=== PATIENT | male | born 1980 | race Caucasian/White ===

== ENCOUNTER 2017-04-30 17:23 | Observation (INO) | payer OTHER ==
[2017-04-30 17:33] VITALS: BMI 25.6
[2017-04-30 17:53] VITALS: RESP 18
[2017-04-30 18:17] LABS: BASO # 0.01 K/mm3 (0.0-2.0); BASO % 0.2 % (0.0-3.0); EOS # 0.2 (0.0-0.7); EOS % 4.1 % (1.5-5.0); GRAN # 1.34 (1.4-6.5); GRAN % 30.7 % (50.0-68.0); HEMOGLOBIN 14.7 g/dL (14.0-18.0); LYMPH # 2.6 (1.2-3.4); LYMPH % 58.6 % (22.0-35.0); MEAN CELL VOLUME 86.6 fl (80.0-105.0); MEAN CORPUSCULAR HEMOGLOBIN 29.5 pg (25.0-35.0); MEAN PLATELET VOLUME 9.3 fl (7.0-11.0); MONO # 0.3 (0.1-0.6); MONO % 6.4 % (1.0-6.0); RBC 4.99 10^6/uL (3.5-6.1); RED CELL DISTRIBUTION WIDTH 12.8 % (11.5-14.5); WHITE BLOOD COUNT 4.4 10^3/ul (4.5-11.0)
[2017-04-30 18:21] LABS: ALB/GLOB RATIO 1.6 (1.1-1.8); ALBUMIN 4.2 g/dL (3.0-4.8); CALCIUM 9.5 mg/dL (8.4-10.5); GFR AFRICAN-AMERICAN > 60; GFR NON-AFRICAN AMERICAN > 60; LIPASE 81 U/L (23-300)
[2017-04-30 18:22] LABS: INR 1.03 (0.93-1.08); PARTIAL THROMBOPLASTIN TIME 28.3 Seconds (25.1-36.5); PROTHROMBIN TIME 11.8 SECONDS (9.4-12.5)
[2017-04-30 18:23] LABS: ALT/SGPT 44 U/L (7-56); AST/SGOT 28 U/L (17-59); BLOOD UREA NITROGEN 16 mg/dL (7-21)
[2017-04-30 18:33] LABS: B-TYPE NATRIURETIC PEPTIDE 21.6 pg/mL (0-450); TROPONIN I < 0.01 ng/mL
--- NOTE | 2017-04-30 18:52 | RAD ---
HISTORY: chest pain COMPARISON: None available. TECHNIQUE: Chest, one view. FINDINGS: LUNGS: Right hilar prominence. No focal consolidation. Please note that chest x-ray has limited sensitivity for the detection of pulmonary masses. PLEURA: No significant pleural effusion identified. No definite pneumothorax . CARDIOVASCULAR: Heart size appears within normal limits. OSSEOUS STRUCTURES: No acute osseous abnormality identified. VISUALIZED UPPER ABDOMEN: Elevation of the right hemidiaphragm. OTHER FINDINGS: None. IMPRESSION: Right hilar prominence.
--- NOTE | 2017-04-30 19:00 | ED PDOC ---
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 Patient reportedly was playing with his kids, and while he was laying down, developed a sudden onset of "squeezing in his chest" that radiated to his neck and was associated with shortness of breath and diaphoresis. Pain does not radiate to arms or back. No leg pain or numbness. No back pain. Denies facial or tongue swelling. States squeezing sensation persistent. He denies any prior episodes of this. Denies prior history of any cardiac disease. States there is history of "atherosclerosis" in his mother. PMD Dr. Delia Condon 04/30/17 18:57 Time/Duration: Prior to Arrival Symptom Onset: Sudden Past Medical History - Cardiac Hx Cardiac Disorders: No - Pulmonary Hx Respiratory Disorders: No - Neurological Hx Neurological Disorder: No - HEENT Hx HEENT Disorder: No - Renal Hx Renal Disorder: No - Endocrine/Metabolic Hx Endocrine Disorders: No - Hematological/Oncological Hx Blood Disorders: No - Integumentary Hx Dermatological Disorder: No - Musculoskeletal/Rheumatological Hx Musculoskeletal Disorders: No - Gastrointestinal Hx Gastrointestinal Disorders: Yes Hx Gastroesophageal Reflux: Yes - Psychiatric Hx Substance Use: No - Surgical History Hx Cholecystectomy: Yes Hx Musculoskeletal Surgery: Yes (right knee and left ankle) - Anesthesia Hx Anesthesia: Yes Hx Anesthesia Reactions: No Hx Malignant Hyperthermia: No Family/Social History Family/Social History: Unknown Family HX Smoking Status: Never Smoked Hx Alcohol Use: No Hx Substance Use: No Allergies/Home Meds Allergies/Adverse Reactions: Allergies No Known Allergies Allergy (Verified 04/30/17 17:32) Home Medications: Home Meds Medication Instructions Recorded Confirmed No Known Home Med 04/30/17 04/30/17 Review of Systems - Review of Systems Constitutional: Fatigue. absent: Fevers Eyes: absent: Vision Changes ENT: absent: Hearing Changes Respiratory: SOB. absent: Cough Cardiovascular: Chest Pain. absent: Palpitations, Edema, Calf Pain, VICENTE, Orthopnea Gastrointestinal: absent: Abdominal Pain, Nausea, Vomiting, Hematochezia, Hematemesis Genitourinary Male: absent: Dysuria, Frequency Musculoskeletal: absent: Back Pain, Neck Pain Skin: absent: Rash Neurological: absent: Headache, Dizziness, Focal Weakness Endocrine: absent: Polyuria Hemo/Lymphatic: absent: Easy Bleeding Psychiatric: absent: Depression Physical Exam Vital Signs Reviewed: Yes Vital Signs Temp Pulse Resp BP Pulse Ox 04/30/17 21:24 72 18 128/74 99 04/30/17 19:24 70 18 127/73 100 04/30/17 17:32 98.6 F 75 18 125/76 98 Temperature: Afebrile Appearance: Positive for: Ill-Appearing, Uncomfortable Pain Distress: Moderate Mental Status: Positive for: Alert and Oriented X 3 Finger Stick Blood Glucose: 116 - Systems Exam Head: Present: Atraumatic Pupils: Present: PERRL Extroacular Muscles: Present: EOMI Mouth: Present: Moist Mucous Membranes Pharnyx: No: ERYTHEMA Nose (Internal): Present: Normal Inspection Neck: Present: Normal Range of Motion. No: Meningeal Signs Respiratory/Chest: Present: Clear to Auscultation. No: Respiratory Distress, Tender to Palpation Cardiovascular: Present: Regular Rate and Rhythm, Murmurs Abdomen: Present: Normal Bowel Sounds. No: Tenderness, Distention, Peritoneal Signs Rectal: No: Gross Blood Back: No: CVA Tenderness Upper Extremity: No: Cyanosis Lower Extremity: Present: NORMAL PULSES. No: Edema, CALF TENDERNESS Neurological: Present: Motor Func Grossly Intact, Normal Sensory Function Skin: Present: Diaphoretic Psychiatric: Present: Alert, Normal Insight, Normal Concentration Medical Decision Making ED Course and Treatment: 04/30/17 19:02 Patient presents with friend who translates. On exam, he is pale, diaphoretic with "squeezing" chest pain, nonradiating. CXR reveals no pneumothorax and unremarkable mediastinum. BP and pulse equal in both upper extremities. No association with meals. No pleuritic pain. No calf pain. No hypoxia. No recent travel or prolonged immobilization or recent surgeries. There is vague family hx of CAD. Patient administered ASA, Pepcid with improvement of pain, but persistent. Initial EKG unremarkable. - Lab Interpretations Lab Results: 04/30/17 18:00 04/30/17 18:00 Lab Results 04/30/17 19:35: Urine Color Yellow, Urine Appearance Clear, Urine pH 6.5, Ur Specific [place] 1.025, Urine Protein Negative, Urine Glucose (UA) Negative, Urine Ketones Trace H, Urine Blood Negative, Urine Nitrate Negative, Urine Bilirubin Negative, Urine Urobilinogen 0.2, Ur Leukocyte Esterase Negative 04/30/17 18:01: POC Glucose (mg/dL) 116 H 04/30/17 18:00: Sodium 143, Potassium 4.0, Chloride 104, Carbon Dioxide 27, Anion Gap 16, BUN 16, Creatinine 1.0, Est GFR ( Amer) > 60, Est GFR (Non- Af Amer) > 60, Random Glucose 114 H, Calcium 9.5, Total Bilirubin 0.4, AST 28, ALT 44, Alkaline Phosphatase 42, Lactate Dehydrogenase 432, Total Creatine Kinase 86, Troponin I < 0.01, NT-Pro-B Natriuret Pep 21.6, Total Protein 6.9, Albumin 4.2, Globulin 2.7, Albumin/Globulin Ratio 1.6, Lipase 81 04/30/17 18:00: PT 11.8, INR 1.03, APTT 28.3 04/30/17 18:00: WBC 4.4 L, RBC 4.99, Hgb 14.7, Hct 43.2, MCV 86.6, MCH 29.5, MCHC 34.0, RDW 12.8, Plt Count 266, MPV 9.3, Gran % 30.7 L, Lymph % (Auto) 58.6 H, [place] % (Auto) 6.4 H, Eos % (Auto) 4.1, Baso % (Auto) 0.2, Gran # 1.34 L, Lymph # (Auto) 2.6, [place] # (Auto) 0.3, Eos # (Auto) 0.2, Baso # (Auto) 0.01 - RAD Interpretation Radiology Orders: 04/30/17 17:52 CHEST PORTABLE [RAD] Stat - EKG Interpretation EKG Interpretation (Text): 04/30/17 19:04 EKG at 17:30 normal sinus rhythm with sinus arrhythmia rate of 66, no acute st elevations Interpreted by ED Physician: Yes Type: 12 lead EKG - Medication Orders Current Medication Orders: Famotidine (Pepcid) 20 mg IVP DAILY [facility] Heparin Sodium (Porcine) (Heparin) 5,000 units SC Q12 JESSIE PRN Reason: Protocol Discontinued Medications Aspirin (Aspirin Chewable) 81 mg PO STAT STA Stop: 04/30/17 17:54 Last Admin: 04/30/17 18:11 Dose: 81 mg Famotidine (Pepcid) 20 mg IVP STAT STA Stop: 04/30/17 17:54 Last Admin: 04/30/17 18:11 Dose: 20 mg IVP Administration Document 04/30/17 18:11 SUSHMA (Rec: 04/30/17 18:11 SUSHMA [id number]) Charges for Administration # of IVP Administrations 1 Disposition/Present on Arrival - Present on Arrival Any Indicators Present on Arrival: No History of DVT/PE: No History of Uncontrolled Diabetes: No Urinary Catheter: No History of Decub. Ulcer: No History Surgical Site Infection Following: None - Disposition Have Diagnosis and Disposition been Completed?: Yes Diagnosis: Chest pain Disposition: HOSPITALIZED Disposition Time: 19:04 Patient Plan: Admission, Observation, Telemetry Patient Problems: Current Active Problems Problem Status Onset Chest pain Acute Condition: FAIR
[2017-04-30 20:10] LABS: PH,URINE 6.5 (4.7-8.0); URINE BILIRUBIN NEGATIVE (NEGATIVE); URINE BLOOD NEGATIVE (NEGATIVE); URINE GLUCOSE (UA) NEGATIVE (NEGATIVE); URINE LEUKOCYTE ESTERASE NEGATIVE Leu/uL (NEGATIVE); URINE NITRATE NEGATIVE (NEGATIVE); URINE PROTEIN NEGATIVE mg/dL (<30 mg/dL); URINE UROBILINOGEN 0.2 E.U./dL (<1 E.U./dL)
[2017-04-30 20:13] LABS: URINE APPEARANCE CLEAR (CLEAR); URINE COLOR YELLOW (YELLOW)
--- NOTE | 2017-04-30 20:39 | CP.PCM.HP ---
<Vinicio Schroeder - Last Filed: 04/30/17 21:58> History of Present Illness - History of Present Illness History of Present Illness: 36 year old male with no significant past medical history presents with chest pain and pressure. Patient states around 4 pm today he was playing with his kids when he experienced a burning sensation located mid sternally which radiated up into his throat. In addition, he stated he felt pressure all over his chest as if someone was sitting on him. The pain lasted for about 3 minutes and patient felt short of breath. He denied any radiation to the arms or to the jaw or face. He denies any pain on inhalation, but states the pain is slightly reproducible on palpation. He stated the pain was a 10/10 but has improved since being in the hospital. Patient also had once episode of vomiting. Patient denies any nausea currently, fever, chills, sore throat, recent sick contacts, recent travel, diarrhea or abdominal pain. PMH: denies PSH: right knee surgey, left ankle surgery, gall bladder removal Allergies: denies Medications: Vitamin D weekly Social: denies alcohol, tobacco, or illicit drug use Family Hx: states mother had high cholesterol but denies any history of [place] Present on Admission - Present on Admission Any Indicators Present on Admission: No Review of Systems - Constitutional Constitutional: absent: Anorexia, Chills, Fever, Weight Gain, Weakness - EENT Eyes: absent: Change in Vision Nose/Mouth/Throat: absent: Nasal Congestion, Nasal Discharge - Cardiovascular Cardiovascular: Chest Pain, Dyspnea. absent: Irregular Heart Rhythm, Pain Radiating to Arm/Neck/Jaw, Lightheadedness, Radiating Pain, Rapid Heart Rate - Respiratory Respiratory: Dyspnea. absent: Cough, Wheezing - Gastrointestinal Gastrointestinal: Vomiting. absent: Diarrhea, Nausea - Genitourinary Genitourinary: absent: Change in Urinary Stream, Difficulty Urinating - Musculoskeletal Musculoskeletal: absent: Abnormal Gait, Arthralgias - Integumentary Integumentary: absent: Sores, Swelling - Neurological Neurological: absent: Dizziness, Headaches, Paresthesias, Tingling, Weakness Past Patient History - Past Social History Smoking Status: Never Smoked - CARDIAC Hx Cardiac Disorders: No - PULMONARY Hx Respiratory Disorders: No - NEUROLOGICAL Hx Neurological Disorder: No - HEENT Hx HEENT Problems: No - RENAL Hx Chronic Kidney Disease: No - ENDOCRINE/METABOLIC Hx Endocrine Disorders: No - HEMATOLOGICAL/ONCOLOGICAL Hx Blood Disorders: No - INTEGUMENTARY Hx Dermatological Problems: No - MUSCULOSKELETAL/RHEUMATOLOGICAL Hx Musculoskeletal Disorders: No - GASTROINTESTINAL Hx Gastrointestinal Disorders: Yes Hx Gastroesophageal Reflux: Yes - PSYCHIATRIC Hx Substance Use: No - SURGICAL HISTORY Hx Cholecystectomy: Yes Hx Musculoskeletal Surgery: Yes (right knee and left ankle) - ANESTHESIA Hx Anesthesia: Yes Hx Anesthesia Reactions: No Hx Malignant Hyperthermia: No Meds Allergies/Adverse Reactions: Allergies Allergy/AdvReac Type Severity Reaction Status Date / Time No Known Allergies Allergy Verified 04/30/17 17:32 Physical Exam - Constitutional Appears: Non-toxic, No Acute Distress - Head Exam Head Exam: ATRAUMATIC, NORMAL INSPECTION, NORMOCEPHALIC - Eye Exam Eye Exam: EOMI, Normal appearance - ENT Exam ENT Exam: Mucous Membranes Moist - Neck Exam Neck exam: Negative for: Lymphadenopathy, Tenderness - Respiratory Exam Respiratory Exam: Clear to Auscultation Bilateral, NORMAL BREATHING PATTERN - Cardiovascular Exam Cardiovascular Exam: REGULAR RHYTHM, +S1, +S2 Additional comments: pain on palpation midsternally - GI/Abdominal Exam GI & Abdominal Exam: Soft. absent: Distended, Tenderness - Extremities Exam Extremities exam: Positive for: pedal pulses present. Negative for: pedal edema , tenderness - Neurological Exam Neurological exam: Alert, Oriented x3 - Skin Skin Exam: Normal Color, Warm Results - Vital Signs Recent Vital Signs: Last Vital Signs Temp 98.6 F 04/30/17 17:32 Pulse 75 04/30/17 17:32 Resp 18 04/30/17 17:32 BP 125/76 04/30/17 17:32 Pulse Ox 98 04/30/17 17:32 - Labs Result Diagrams: 04/30/17 18:00 04/30/17 18:00 Labs: Laboratory Results - last 24 hr 04/30/17 04/30/17 04/30/17 18:00 18:00 18:00 WBC 4.4 L RBC 4.99 Hgb 14.7 Hct 43.2 MCV 86.6 MCH 29.5 MCHC 34.0 RDW 12.8 Plt Count 266 MPV 9.3 Gran % 30.7 L Lymph % (Auto) 58.6 H [place] % (Auto) 6.4 H Eos % (Auto) 4.1 Baso % (Auto) 0.2 Gran # 1.34 L Lymph # (Auto) 2.6 [place] # (Auto) 0.3 Eos # (Auto) 0.2 Baso # (Auto) 0.01 PT 11.8 INR 1.03 APTT 28.3 Sodium 143 Potassium 4.0 Chloride 104 Carbon Dioxide 27 Anion Gap 16 BUN 16 Creatinine 1.0 Est GFR ( Amer) > 60 Est GFR (Non-Af Amer) > 60 POC Glucose (mg/dL) Random Glucose 114 H Calcium 9.5 Total Bilirubin 0.4 AST 28 ALT 44 Alkaline Phosphatase 42 Lactate Dehydrogenase 432 Total Creatine Kinase 86 Troponin I < 0.01 NT-Pro-B Natriuret Pep 21.6 Total Protein 6.9 Albumin 4.2 Globulin 2.7 Albumin/Globulin Ratio 1.6 Lipase 81 Urine Color Urine Appearance Urine pH Ur Specific [place] Urine Protein Urine Glucose (UA) Urine Ketones Urine Blood Urine Nitrate Urine Bilirubin Urine Urobilinogen Ur Leukocyte Esterase 04/30/17 04/30/17 18:01 19:35 WBC RBC Hgb Hct MCV MCH MCHC RDW Plt Count MPV Gran % Lymph % (Auto) [place] % (Auto) Eos % (Auto) Baso % (Auto) Gran # Lymph # (Auto) [place] # (Auto) Eos # (Auto) Baso # (Auto) PT INR APTT Sodium Potassium Chloride Carbon Dioxide Anion Gap BUN Creatinine Est GFR ( Amer) Est GFR (Non-Af Amer) POC Glucose (mg/dL) 116 H Random Glucose Calcium Total Bilirubin AST ALT Alkaline Phosphatase Lactate Dehydrogenase Total Creatine Kinase Troponin I NT-Pro-B Natriuret Pep Total Protein Albumin Globulin Albumin/Globulin Ratio Lipase Urine Color Yellow Urine Appearance Clear Urine pH 6.5 Ur Specific [place] 1.025 Urine Protein Negative Urine Glucose (UA) Negative Urine Ketones Trace H Urine Blood Negative Urine Nitrate Negative Urine Bilirubin Negative Urine Urobilinogen 0.2 Ur Leukocyte Esterase Negative Assessment & Plan - Assessment and Plan (Free Text) Assessment: 36 year old male with no significant past medical history presents with chest pain and pressure. Plan: 1. Chest Pain -EKG pending official read, NSR 66bpm -Chest xray: right hilar prominence -CT chest pending -BP: 125/76 -initial trop negative, will trend x2 additional -cardiology consulted, Becca, tanner recs -lipid panel pending -A1C pending -TSH, T4 pending -pepcid daily GI/DVT -pepcid -heparin SC <Maida Gross N - Last Filed: 05/01/17 06:36> Results - Vital Signs Recent Vital Signs: Last Vital Signs Temp 97.6 F 05/01/17 01:39 Pulse 60 05/01/17 01:39 Resp 18 05/01/17 01:39 BP 117/74 05/01/17 01:39 Pulse Ox 99 04/30/17 21:24 - Labs Result Diagrams: 04/30/17 18:00 04/30/17 18:00 Labs: Laboratory Results - last 24 hr 05/01/17 01:10 Troponin I < 0.01
[2017-04-30] MEDS ORDERED: Iohexol 350 MG/100 ML VIAL ONE (20:54)
--- NOTE | 2017-05-01 00:17 | CARD ---
APPROVED REPORT EKG Measurement Heart [id number] <Conclusion> Normal sinus rhythm with sinus arrhythmia Normal ECG
--- NOTE | 2017-05-01 02:45 | CT ---
EXAM: CT Chest With Intravenous Contrast EXAM DATE/TIME: 04/30/2017 8:29 PM CLINICAL HISTORY: 36 years old, male; Pain; Chest pain; Additional info: Right hilar prominence TECHNIQUE: Axial computed tomography images of the chest with intravenous contrast. All CT scans at this facility use one or more dose reduction techniques, viz.: automated exposure control; ma/kV adjustment per patient size (including targeted exams where dose is matched to indication; i.e. head); or iterative reconstruction technique. Coronal and sagittal reformatted images were created and reviewed. CONTRAST: 96 mL of OMNI 350 administered intravenously. COMPARISON: Recent chest radiographs of 04/30/2017. FINDINGS: LIMITATIONS: Moderate to marked respiratory motion artifact. LUNGS: Round densities in the lumen of the upper trachea, which do not occlude the airway. Findings most likely represent a mucous plugging or aspirated debris in the trachea. Patchy groundglass densities in the posterior lungs bilaterally, most likely representing dependent atelectasis. No evidence of right hilar mass or lymphadenopathy. No evidence of significant focal consolidation/infiltrate in the lungs. No evidence of diffuse pulmonary vascular congestion. PLEURAL SPACE: No pneumothorax or significant pleural effusions seen. HEART: Heart appears prominent in size for age.Recommend clinical correlation. No evidence of significant pericardial effusion. BONES/JOINTS: No acute fractures or other acute bony abnormality noted. SOFT TISSUES: No acute abnormality of the visualized soft tissues is seen. VASCULATURE: No pulmonary embolism is seen, but the exam is nondiagnostic for emboli in the small pulmonary artery branches, due to motion artifact. No evidence of aortic dissection. . LYMPH NODES: No evidence of diffuse lymphadenopathy. LIVER: Incidental indeterminate 1.6 cm hypervascular lesion in the liver. Differential considerations include an atypical hemangioma or focal nodular hyperplasia. This finding could be further evaluated with followup liver protocol CT or MRI of the abdomen, on a nonemergent basis. IMPRESSION: - Mucous plugging or aspirated debris in the trachea. - Heart appears prominent in size for age. Recommend clinical correlation. - Indeterminate hypervascular liver lesion. See above recommendations. - No other significant abnormality identified, allowing for motion artifact. No evidence of right hilar mass or lymphadenopathy - See above for remaining findings.
[2017-05-01 07:47] LABS: HDL CHOLESTEROL 36 mg/dL (29-60)
[2017-05-01 07:56] LABS: BASO # 0.01 K/mm3 (0.0-2.0); BASO % 0.3 % (0.0-3.0); EOS # 0.2 (0.0-0.7); EOS % 4.9 % (1.5-5.0); GRAN # 1.1 (1.4-6.5); GRAN % 31.4 % (50.0-68.0); HEMOGLOBIN 14.9 g/dL (14.0-18.0); LYMPH # 1.9 (1.2-3.4); LYMPH % 53.9 % (22.0-35.0); MEAN CELL VOLUME 86.9 fl (80.0-105.0); MEAN CORPUSCULAR HGB CONC 33.4 g/dl (31.0-37.0); MEAN PLATELET VOLUME 9.2 fl (7.0-11.0); MONO # 0.3 (0.1-0.6); MONO % 9.5 % (1.0-6.0); RBC 5.13 10^6/uL (3.5-6.1); RED CELL DISTRIBUTION WIDTH 12.8 % (11.5-14.5); WHITE BLOOD COUNT 3.5 10^3/ul (4.5-11.0)
[2017-05-01 07:59] LABS: LDL CHOLESTEROL 126 mg/dL (0-129)
[2017-05-01 08:11] LABS: T4 10.3 ug/dL (5.5-11.0)
[2017-05-01 08:12] LABS: ALB/GLOB RATIO 1.4 (1.1-1.8); ALBUMIN 3.8 g/dL (3.0-4.8); ALT/SGPT 39 U/L (7-56); AST/SGOT 27 U/L (17-59); BLOOD UREA NITROGEN 17 mg/dL (7-21); CALCIUM 9.7 mg/dL (8.4-10.5); GFR AFRICAN-AMERICAN > 60; GFR NON-AFRICAN AMERICAN > 60
[2017-05-01 08:24] LABS: TROPONIN I < 0.01 ng/mL
[2017-05-01 09:07] VITALS: BP 103/66; TEMP 98.2; O2SAT 97
--- NOTE | 2017-05-01 11:27 | CARD ---
APPROVED REPORT EXAM: Two-dimensional and M-mode echocardiogram with Doppler and color Doppler. INDICATION Chest Pain 2D DIMENSIONS Left Atrium (2D)4.0 (1.6-4.0cm)IVSd1.1 (0.7-1.1cm) LVDd4.8 (3.9-5.9cm)PWd1.2 (0.7-1.1cm) LVDs3.3 (2.5-4.0cm)FS (%) 31.1 % LVEF (%)58.9 (>50%) M-Mode DIMENSIONS Aortic Root3.60 (2.2-3.7cm)Aortic Cusp Exc.2.30 (1.5-2.0cm) Aortic Valve AoV Peak Qyxbaljn99.4cm/Tony Peak GR.4mmHg Mitral Valve MV E Hkvuevpi89.3cm/sMV A Wlvmpaqz87.9cm/sE/A ratio1.1 TDI E/Lateral E'0.0E/Medial E'0.0 Tricuspid Valve TR Peak [id number]/sRAP [id number] Peak Gr.23mmHg [id number] LEFT VENTRICLE The left ventricle is normal size. There is normal left ventricular wall thickness. The left ventricular function is normal. The left ventricular ejection fraction is within the normal range. There is normal LV segmental wall motion. The left ventricular diastolic function is normal. RIGHT VENTRICLE The right ventricle is borderline dilated. There is normal right ventricular wall thickness. The right ventricular systolic function is normal. ATRIA The left atrium is borderline dilated. The right atrium size is normal. AORTIC VALVE The aortic valve is normal in structure. No aortic regurgitation is present. There is no aortic valvular stenosis. MITRAL VALVE The mitral valve is normal in structure. Mitral regurgitation is trace. TRICUSPID VALVE The tricuspid valve is normal in structure. There is trace tricuspid regurgitation. PULMONIC VALVE There is trace pulmonic valvular regurgitation. GREAT VESSELS The aortic root is normal in size. The IVC is normal in size and collapses >50% with inspiration. PERICARDIAL EFFUSION There is no pericardial effusion. <Conclusion> The left ventricle is normal size. There is normal left ventricular wall thickness. The left ventricular function is normal. The left ventricular ejection fraction is within the normal range. There is normal LV segmental wall motion. The left ventricular diastolic function is normal.
[2017-05-01 11:28] VITALS: PULSE 70
--- NOTE | 2017-05-01 15:59 | CP.PCM.DIS ---
<Bushra Tian - Last Filed: 05/01/17 15:54> Provider - Provider Date of Admission: 04/30/17 19:55 Attending physician: Darlin Calvillo MD Primary care physician: Safia Condon MD Consults: Dr. Hudson Time Spent in preparation of Discharge (in minutes): 35 Diagnosis - Discharge Diagnosis (1) GERD (gastroesophageal reflux disease) Status: Acute Hospital Course - Lab Results Lab Results: Most Recent Lab Values WBC 3.5 10^3/ul (4.5-11.0) L D 05/01/17 07:00 RBC 5.13 10^6/uL (3.5-6.1) 05/01/17 07:00 Hgb 14.9 g/dL (14.0-18.0) 05/01/17 07:00 Hct 44.6 % (42.0-52.0) 05/01/17 07:00 MCV 86.9 fl (80.0-105.0) 05/01/17 07:00 MCH 29.0 pg (25.0-35.0) 05/01/17 07:00 MCHC 33.4 g/dl (31.0-37.0) 05/01/17 07:00 RDW 12.8 % (11.5-14.5) 05/01/17 07:00 Plt Count 230 10^3/uL (120.0-450.0) 05/01/17 07:00 MPV 9.2 fl (7.0-11.0) 05/01/17 07:00 Gran % 31.4 % (50.0-68.0) L 05/01/17 07:00 Lymph % (Auto) 53.9 % (22.0-35.0) H 05/01/17 07:00 Turner % (Auto) 9.5 % (1.0-6.0) H 05/01/17 07:00 Eos % (Auto) 4.9 % (1.5-5.0) 05/01/17 07:00 Baso % (Auto) 0.3 % (0.0-3.0) 05/01/17 07:00 Gran # 1.10 (1.4-6.5) L 05/01/17 07:00 Lymph # (Auto) 1.9 (1.2-3.4) 05/01/17 07:00 Turner # (Auto) 0.3 (0.1-0.6) 05/01/17 07:00 Eos # (Auto) 0.2 (0.0-0.7) 05/01/17 07:00 Baso # (Auto) 0.01 K/mm3 (0.0-2.0) 05/01/17 07:00 PT 11.8 SECONDS (9.4-12.5) 04/30/17 18:00 INR 1.03 (0.93-1.08) 04/30/17 18:00 APTT 28.3 Seconds (25.1-36.5) 04/30/17 18:00 D-Dimer, Quantitative < 200 ng/mL (0-243) 05/01/17 11:30 Sodium 142 mmol/L (132-148) 05/01/17 07:00 Potassium 4.1 mmol/L (3.6-5.0) 05/01/17 07:00 Chloride 106 mmol/L (98-107) 05/01/17 07:00 Carbon Dioxide 25 mmol/L (21-33) 05/01/17 07:00 Anion Gap 15 (10-20) 05/01/17 07:00 BUN 17 mg/dL (7-21) 05/01/17 07:00 Creatinine 0.8 mg/dl (0.8-1.5) 05/01/17 07:00 Est GFR ( Amer) > 60 05/01/17 07:00 Est GFR (Non-Af Amer) > 60 05/01/17 07:00 POC Glucose (mg/dL) 116 mg/dL (65-110) H 04/30/17 18:01 Random Glucose 97 mg/dL (70-110) 05/01/17 07:00 Hemoglobin A1c 5.3 % (4.2-6.5) 05/01/17 07:00 Calcium 9.7 mg/dL (8.4-10.5) 05/01/17 07:00 Total Bilirubin 0.4 mg/dL (0.2-1.3) 05/01/17 07:00 AST 27 U/L (17-59) 05/01/17 07:00 ALT 39 U/L (7-56) 05/01/17 07:00 Alkaline Phosphatase 43 U/L (38-126) 05/01/17 07:00 Lactate Dehydrogenase 432 U/L (333-699) 04/30/17 18:00 Total Creatine Kinase 86 U/L (35-230) 04/30/17 18:00 Troponin I < 0.01 ng/mL 05/01/17 07:00 NT-Pro-B Natriuret Pep 21.6 pg/mL (0-450) 04/30/17 18:00 Total Protein 6.6 g/dL (5.8-8.3) 05/01/17 07:00 Albumin 3.8 g/dL (3.0-4.8) 05/01/17 07:00 Globulin 2.8 gm/dL 05/01/17 07:00 Albumin/Globulin Ratio 1.4 (1.1-1.8) 05/01/17 07:00 Triglycerides 111 mg/dL (35-160) 05/01/17 07:00 Cholesterol 178 mg/dL (130-200) 05/01/17 07:00 LDL Cholesterol Direct 126 mg/dL (0-129) 05/01/17 07:00 HDL Cholesterol 36 mg/dL (29-60) 05/01/17 07:00 Lipase 81 U/L (23-300) 04/30/17 18:00 Thyroxine (T4) 10.3 ug/dL (5.5-11.0) 05/01/17 07:00 TSH 3rd Generation 1.14 mIU/mL (0.46-4.68) 05/01/17 07:00 Urine Color Yellow (YELLOW) 04/30/17 19:35 Urine Appearance Clear (CLEAR) 04/30/17 19:35 Urine pH 6.5 (4.7-8.0) 04/30/17 19:35 Ur Specific Lily 1.025 (1.005-1.035) 04/30/17 19:35 Urine Protein Negative mg/dL (<30 mg/dL) 04/30/17 19:35 Urine Glucose (UA) Negative mg/dL (NEGATIVE) 04/30/17 19:35 Urine Ketones Trace mg/dL (NEGATIVE) H 04/30/17 19:35 Urine Blood Negative (NEGATIVE) 02/07/18 19:35 Urine Nitrate Negative (NEGATIVE) 04/30/17 19:35 Urine Bilirubin Negative (NEGATIVE) 04/30/17 19:35 Urine Urobilinogen 0.2 E.U./dL (<1 E.U./dL) 04/30/17 19:35 Ur Leukocyte Esterase Negative Dmitriy/uL (NEGATIVE) 04/30/17 19:35 - Hospital Course Hospital Course: Upon admission: 36 year old male with no significant past medical history presents with chest pain and pressure. Patient states around 4 pm today he was playing with his kids when he experienced a burning sensation located mid sternally which radiated up into his throat. In addition, he stated he felt pressure all over his chest as if someone was sitting on him. The pain lasted for about 3 minutes and patient felt short of breath. He denied any radiation to the arms or to the jaw or face. He denies any pain on inhalation, but states the pain is slightly reproducible on palpation. He stated the pain was a 10/10 but has improved since being in the hospital. Patient also had once episode of vomiting. Patient denies any nausea currently, fever, chills, sore throat, recent sick contacts, recent travel, diarrhea or abdominal pain. Hospital course: Patient was admitted to rule out ACS. Troponins were negative and EKG showed no ST changes. BNP was 21.6. Chest CT was done and showed no changes other than a liver lesion that the patient will need outpatient follow up for. Cardiology was consulted (Dr. Roberson), who performed and echo and cleared the patient for discharge. EF: 58.9. Upon discharge: Patient was discharged with the following instructions: Please follow up with you PCP within 1 week of discharge from the hospital. You will need to have a dedicated liver CT within 3 weeks of discharge for a small liver lesion seen on CT chest during hospital stay. Please fill and take the following medications: Omeprazole 20 mg daily as needed for acid reflux Please note that this is a summary of events. For more details, please see complete medical record. Discharge Exam - Head Exam Head Exam: ATRAUMATIC, NORMAL INSPECTION, NORMOCEPHALIC - Eye Exam Eye Exam: EOMI, Normal appearance - ENT Exam ENT Exam: Mucous Membranes Moist - Respiratory Exam Respiratory Exam: Clear to PA & Lateral, NORMAL BREATHING PATTERN, UNREMARKABLE - Cardiovascular Exam Cardiovascular Exam: REGULAR RHYTHM, RRR, +S1, +S2 - GI/Abdominal Exam GI & Abdominal Exam: Normal Bowel Sounds, Unremarkable - Extremities Exam Extremities exam: normal inspection - Neurological Exam Neurological exam: Alert, Oriented x3 - Psychiatric Exam Psychiatric exam: Normal Affect, Normal Mood - Skin Skin Exam: Dry, Intact, Normal Color, Warm Discharge Plan - Discharge Medications Prescriptions: Omeprazole 20 mg PO DAILY #14 capsule.dr - Follow Up Plan Condition: GOOD Disposition: HOME/ ROUTINE Instructions: Chest Pain (DC), Gastroesophageal Reflux Disease (DC) Additional Instructions: Please follow up with you PCP within 1 week of discharge from the hospital. You will need to have a dedicated liver CT within 3 weeks of discharge for a small liver lesion seen on CT chest during hospital stay. Please fill and take the following medications: Omeprazole 20 mg daily as needed for acid reflux Referrals: Safia Condon MD [Primary Care Provider] - <RashelIndrahiral - Last Filed: 05/03/17 14:08> Provider - Provider Date of Admission: 04/30/17 19:55 Attending physician: Darlin Calvillo MD Primary care physician: Safia Condon MD Hospital Course - Lab Results Lab Results: Most Recent Lab Values WBC 3.5 10^3/ul (4.5-11.0) L D 05/01/17 07:00 RBC 5.13 10^6/uL (3.5-6.1) 05/01/17 07:00 Hgb 14.9 g/dL (14.0-18.0) 05/01/17 07:00 Hct 44.6 % (42.0-52.0) 05/01/17 07:00 MCV 86.9 fl (80.0-105.0) 05/01/17 07:00 MCH 29.0 pg (25.0-35.0) 05/01/17 07:00 MCHC 33.4 g/dl (31.0-37.0) 05/01/17 07:00 RDW 12.8 % (11.5-14.5) 05/01/17 07:00 Plt Count 230 10^3/uL (120.0-450.0) 05/01/17 07:00 MPV 9.2 fl (7.0-11.0) 05/01/17 07:00 Gran % 31.4 % (50.0-68.0) L 05/01/17 07:00 Lymph % (Auto) 53.9 % (22.0-35.0) H 05/01/17 07:00 Turner % (Auto) 9.5 % (1.0-6.0) H 05/01/17 07:00 Eos % (Auto) 4.9 % (1.5-5.0) 05/01/17 07:00 Baso % (Auto) 0.3 % (0.0-3.0) 05/01/17 07:00 Gran # 1.10 (1.4-6.5) L 05/01/17 07:00 Lymph # (Auto) 1.9 (1.2-3.4) 05/01/17 07:00 Turner # (Auto) 0.3 (0.1-0.6) 05/01/17 07:00 Eos # (Auto) 0.2 (0.0-0.7) 05/01/17 07:00 Baso # (Auto) 0.01 K/mm3 (0.0-2.0) 05/01/17 07:00 PT 11.8 SECONDS (9.4-12.5) 04/30/17 18:00 INR 1.03 (0.93-1.08) 04/30/17 18:00 APTT 28.3 Seconds (25.1-36.5) 04/30/17 18:00 D-Dimer, Quantitative < 200 ng/mL (0-243) 05/01/17 11:30 Sodium 142 mmol/L (132-148) 05/01/17 07:00 Potassium 4.1 mmol/L (3.6-5.0) 05/01/17 07:00 Chloride 106 mmol/L (98-107) 05/01/17 07:00 Carbon Dioxide 25 mmol/L (21-33) 05/01/17 07:00 Anion Gap 15 (10-20) 05/01/17 07:00 BUN 17 mg/dL (7-21) 05/01/17 07:00 Creatinine 0.8 mg/dl (0.8-1.5) 05/01/17 07:00 Est GFR ( Amer) > 60 05/01/17 07:00 Est GFR (Non-Af Amer) > 60 05/01/17 07:00 POC Glucose (mg/dL) 116 mg/dL (65-110) H 04/30/17 18:01 Random Glucose 97 mg/dL (70-110) 05/01/17 07:00 Hemoglobin A1c 5.3 % (4.2-6.5) 05/01/17 07:00 Calcium 9.7 mg/dL (8.4-10.5) 05/01/17 07:00 Total Bilirubin 0.4 mg/dL (0.2-1.3) 05/01/17 07:00 AST 27 U/L (17-59) 05/01/17 07:00 ALT 39 U/L (7-56) 05/01/17 07:00 Alkaline Phosphatase 43 U/L (38-126) 05/01/17 07:00 Lactate Dehydrogenase 432 U/L (333-699) 04/30/17 18:00 Total Creatine Kinase 86 U/L (35-230) 04/30/17 18:00 Troponin I < 0.01 ng/mL 05/01/17 07:00 NT-Pro-B Natriuret Pep 21.6 pg/mL (0-450) 04/30/17 18:00 Total Protein 6.6 g/dL (5.8-8.3) 05/01/17 07:00 Albumin 3.8 g/dL (3.0-4.8) 05/01/17 07:00 Globulin 2.8 gm/dL 05/01/17 07:00 Albumin/Globulin Ratio 1.4 (1.1-1.8) 05/01/17 07:00 Triglycerides 111 mg/dL (35-160) 05/01/17 07:00 Cholesterol 178 mg/dL (130-200) 05/01/17 07:00 LDL Cholesterol Direct 126 mg/dL (0-129) 05/01/17 07:00 HDL Cholesterol 36 mg/dL (29-60) 05/01/17 07:00 Lipase 81 U/L (23-300) 04/30/17 18:00 Thyroxine (T4) 10.3 ug/dL (5.5-11.0) 05/01/17 07:00 TSH 3rd Generation 1.14 mIU/mL (0.46-4.68) 05/01/17 07:00 Urine Color Yellow (YELLOW) 04/30/17 19:35 Urine Appearance Clear (CLEAR) 04/30/17 19:35 Urine pH 6.5 (4.7-8.0) 04/30/17 19:35 Ur Specific Lily 1.025 (1.005-1.035) 04/30/17 19:35 Urine Protein Negative mg/dL (<30 mg/dL) 04/30/17 19:35 Urine Glucose (UA) Negative mg/dL (NEGATIVE) 04/30/17 19:35 Urine Ketones Trace mg/dL (NEGATIVE) H 04/30/17 19:35 Urine Blood Negative (NEGATIVE) 04/30/17 19:35 Urine Nitrate Negative (NEGATIVE) 04/30/17 19:35 Urine Bilirubin Negative (NEGATIVE) 04/30/17 19:35 Urine Urobilinogen 0.2 E.U./dL (<1 E.U./dL) 04/30/17 19:35 Ur Leukocyte Esterase Negative Dmitriy/uL (NEGATIVE) 04/30/17 19:35 Attending/Attestation - Attestation I have personally seen and examined this patient.: Yes I have fully participated in the care of the patient.: Yes I have reviewed all pertinent clinical information, including history, physical exam and plan: Yes Notes (Text): 05/03/17 14:07 Patient was seen and examined with medical doctor md/medical director. Agreed with assessment and plan. 36 yrs old male was admitted with atypical chest pain, has chest wall tenderness. EKG was negative for acute ischemic changes.Serial troponins are normal. Patient is pain free.He will be discharged home and will follow [place] [facility] [place] Management plan was discussed in detail with patient. Education was provided.
--- NOTE | 2017-05-01 18:00 | CARD ---
APPROVED REPORT EKG Measurement Heart [id number] <Conclusion> Sinus bradycardia Otherwise normal ECG
--- NOTE | 2017-05-01 22:53 | CON ---
DATE: CARDIOLOGY CONSULTATION HISTORY OF PRESENT ILLNESS: The patient is a 36-year-old [place]iqu[place] male who has no significant past medical history, has a family history of coronary artery disease. His mother had coronary artery disease in her 50s. He presented because of chest discomfort following having his large lunch meal with his family. The patient describes pain in the sternal area, starting from the epigastric area, radiating to the throat. The patient contacted one of his friends who is a pharmacist who brought him to the emergency room. The patient had no prior episodes of chest pain. SOCIAL HISTORY: Nonsmoker, nondrinker. , lives with his family. MEDICATIONS: Heparin 5000 units q.12h., Pepcid 20 mg intravenously daily. The patient did receive aspirin in the emergency room. REVIEW OF SYSTEMS: No vomiting or diarrhea. No fever or chills. PHYSICAL EXAMINATION: GENERAL: The patient is a young middle-aged male, who does not appear to be in any distress. VITAL SIGNS: Blood pressure 103/66, heart rate 59, temperature 98.2, respirations 18. HEENT: Normocephalic. NECK: No JVD. CHEST: Clear. HEART: S1, S2 regular. ABDOMEN: Soft. EXTREMITIES: No edema. LABORATORY DATA: PT, PTT, INR are within normal limits. SMA-7 today is within normal limits. Three sets of troponins are negative. Hemoglobin and hematocrit are within normal limits. White count 3.5, platelet count 130,000. SMA-7 revealed normal sinus rhythm with sinus arrhythmia. Chest x-ray was unremarkable. Chest CT angio revealed mucus plugging or aspirated debris in the trachea. Heart appears prominent in size for age. Indeterminate hypervascular liver lesion. ASSESSMENT: 1. Chest pain, myocardial infarction is ruled out. 2. Evidence of mucus plugging or aspirated debris in the trachea on the CT scan. 3. Borderline dilated right ventricle on the echocardiographic study. RECOMMENDATIONS: Continue Pepcid 20 mg intravenously daily, subcutaneous heparin 5000 units twice a day. Start aspirin 81 mg once a day. Obtain a 12-lead EKG and serum D-dimer. Yong Hudson MD [facility] # [id number]
== END 2017-05-01 15:39 | disposition home or self-care (01) ==
LOC: ED 17:23 → ERH 19:55 → 3RSO 21:51
PROVIDERS: ADMIT Internal Medicine; ATTEND Internal Medicine
DX: K21.9 Gastro-esophageal reflux disease without esophagitis (principal); R07.89 Other chest pain; Z82.49 Family history of ischemic heart disease and other diseases of the circulatory system
CPT/HCPCS: 36415; 71045; 71260; 80053; 80061; 81003; 82550; 82948; 83036; 83615; 83690; 83880; 84436; 84443; 84484; 85025; 85378; 85610; 85730; 93005; 93306; 96374; 99285; G0378; J1644; Q9967